=== PATIENT | male | born 1990 | race American Indian/Alaskan Native ===

== ENCOUNTER 2018-12-27 15:43 | Emergency (ER) | payer SELFPAY ==
[~2018-12-27] VITALS: Ht 170.2 cm; Wt 67.0 kg
[2018-12-27] MEDS ORDERED: KETOROLAC 30MG/ML VIAL IM ONE (20:30)
[2018-12-27 21:29] VITALS: BP 124/83
== END 2018-12-27 22:01 | disposition home or self-care (01) ==
LOC: ER 15:43 → EDBD 15:43 → ER 22:01
DX: M25.551 Pain in right hip (principal)
CPT/HCPCS: 73502; 96372; 99283; J1885